=== PATIENT | female | born 2000 | race Two or more races ===

== ENCOUNTER 2024-06-28 22:20 | Emergency (ER) | payer MEDICAID, SELFPAY ==
[2024-06-28 22:20] VITALS: BMI 39.0
[2024-06-28 22:55] VITALS: BP 156/84; PULSE 103; RESP 20; TEMP 37.3; O2SAT 97
--- NOTE | 2024-06-28 23:01 | PD.EDCHEST ---
ED Chest Pain RME/HPI General Chief Complaint: Chest Pain Stated Complaint: CHEST PAIN Time Seen by Provider: 06/28/24 22:21 Arrival date/time: 06/28/24 22:20 This is a 23-year-old female that comes in with complaints of cough, congestion, runny nose and chest pain that started today. 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 Patient states that she is exposed to a lot of patients to have the flu. Patient states it hurts Related Data Previous Rx's ?Medication ?Instructions ?Recorded ibuprofen 800 mg tablet 800 mg PO TID #30 tabs 01/19/19 ibuprofen 800 mg tablet 800 mg PO Q6H PRN pain #14 tabs 06/29/24 promethazine-DM 6.25 mg-15 mg/5 mL 5 ml PO Q6H PRN cough #120 mL 06/29/24 oral syrup Allergies Allergy/AdvReac Type Severity Reaction Status Date / Time No Known Allergies Allergy Verified 05/09/20 19:21 Review of Systems Review of Systems Systems Reviewed: All systems reviewed, normal except as documented Past Medical History Social History SMOKING STATUS: Unknown if ever smoked SUBSTANCE USE: marijuana (daily) ALCOHOL: Never Travel History EBOLA RISK: No ED Exam Narrative Physical exam: VITAL SIGNS: Reviewed. GENERAL APPEARANCE: Alert and interactive, follows commands, no acute distress HEAD AND FACE: Non-traumatic. ENT: PERRL, pink conjunctivitis, eyelid no trauma, Mucous membrane moist. NECK: Supple, nontender, no nuchal rigidity. CHEST: No tenderness, no crepitus, no paradoxical movement, no retractions. LUNGS: Clear, well ventilated, symmetric, no rales, no wheezing, no ronchi, no stridor, good breath sounds bilaterally. HEART: Regular rate, regular rhythm, no murmur, no gallops. ABDOMEN: Soft, nondistended, no guarding, nontender, no rebound, no masses, NEUROLOGICAL: Gross motor function intact sensory function intact, Appropriate for age. MUSCULOSKELETAL: low back nontender, full range of motion. EXTREMITIES: No redness no swelling no skin breakdown on bilateral foot and leg. Distal neurovascular status intact bilateral foot SKIN: Color pink, dry, no rash, no lacerations, no abrasions, no contusions. Course Quality Measures none Orders Category Date Time Status Bedside COVID-19 Antigen Test NOW Care 06/28/24 23:00 Completed Bedside Influenza A&B Antigen Test NOW Care 06/28/24 23:01 Completed Strep A Rapid Stat Lab 06/28/24 23:03 Completed Acetaminophen Tab [Tylenol ES Tab] Med 06/28/24 23:00 Discontinued 1,000 mg PO X1 ONE Ibuprofen Tab [Motrin Tab] Med 06/28/24 23:00 Discontinued 800 mg PO X1 ONE Promethazine/Dextromethorph [Phenergan Dm Syrup] Med 06/28/24 23:00 Discontinued 5 ml PO X1 ONE Vital Signs Vital signs: Vital Signs Temperature 99.1 F 06/28/24 22:55 Pulse Rate 103 H 06/28/24 22:55 Respiratory Rate 20 06/28/24 22:55 Blood Pressure 156/84 H 06/28/24 22:55 Pulse Oximetry (%) 97 06/28/24 22:55 Oxygen Delivery Method Room Air 06/28/24 22:55 Chest Pain MDM Narrative MDM Narrative:: Patient's influenza and COVID were negative. Lungs sound clear. Patient states it hurts more to take deep breaths. Patient given Tylenol and ibuprofen for pain. Patient also given Promethazine DM for the cough. Patient feels better. Patient feels comfortable going home at this time. Patient told to follow-up with primary provider in 1 to 2 days. Come back to the emergency room if symptoms change or worsen. Patient data External records reviewed:: [facility] previous records Clinical information provided by:: patient Social determinants that could affect healthcare access:: none Patient has the following chronic illnesses:: None How is presenting disease/condition affected by chronic disease/condition?: no chronic disease Evaluation data The following diagnostics were reviewed and interpreted by me:: lab results Lab and/or radiology exams considered but not ordered:: None Interpretation Summary: See note Medications / Prescriptions Medications or Prescriptions considered but not ordered:: See MAR Medication administrations:: Medication Administration History Discontinued Medications Acetaminophen (Acetaminophen 500 Mg Tablet) 1,000 mg PO X1 ONE Stop: 06/28/24 23:01 Last Admin: 06/28/24 23:25 Dose: 1,000 mg Documented By: ISAURA Ibuprofen (Ibuprofen Tab 400 Mg Tablet) 800 mg PO X1 ONE Stop: 06/28/24 23:01 Last Admin: 06/28/24 23:25 Dose: 800 mg Documented By: ISAURA Promethazine HCl/Dextromethorphan (Promethazine/Dm Syrup 5 Ml Dose) 5 ml PO X1 ONE; Protocol Stop: 06/28/24 23:01 Last Admin: 06/28/24 23:26 Dose: 5 ml Documented By: ISAURA See MAR Consultations Consultation(s) initiated? (list below): No Diagnosis Most likely diagnosis given after review of the tests above:: Cough URI Admission Indicated Admission indicated?: not indicated Admission Request Was there a request for admission?: No Disposition Plan Disposition Plan: Discharge Discharge Attestation Discharge Attestation: The patient and all family members were given an opportunity to ask questions and understood the discharge instructions. Discharge instructions specifically effects, indications for sooner follow up or return to the emergency department, and the expected course of current diagnosis. Patient condition: Stable Discharge Plan Plan Patient Disposition: HOME (Self Care) Patient condition on transfer: Stable Prescriptions/Referrals Prescriptions/Med Rec: New promethazine-DM 6.25-15 mg/5 mL syrup 5 ml PO Q6H PRN (Reason: cough) Qty: 120 0RF ibuprofen 800 mg tablet 800 mg PO Q6H PRN (Reason: pain) Qty: 14 0RF No Action ibuprofen 800 mg tablet 800 mg PO TID Qty: 30 0RF Referrals: Rg Boothe MD [Primary Care Provider] - In 1 week Problem List Clinical Impression: Pleurisy, Upper respiratory infection, viral, Cough Patient/Caregiver Discharge Instructions Discharge Activity: activity as tolerated Education Materials: ED Pleurisy, ED URI, Viral, No Abx (Adult) Additional Instructions: Follow up with primary provider in 1-2 days. Come back to ED if symptoms change or worsen Print Language: [place] Citizen Stand Alone Forms: María Elena Award Info., Work/School Release, Patient Portal Info Letter ANTHONY/CHARO Supervising Physician ANTHONY/CHARO Supervising Physician: newton
[2024-06-28] MEDS: IBUPROFEN TAB 400 MG TABLET 800 MG PO (23:25)
[2024-06-28] MEDS: ACETAMINOPHEN 500 MG TABLET 1000 MG PO (23:25)
[2024-06-28] MEDS: PROMETHAZINE/DM SYRUP 5 ML DOSE PO (23:26)
[2024-06-29 00:39] LABS: Strep A Rapid Negative (Negative)
[2024-06-29 01:04] VITALS: RESP 16
== END 2024-06-29 01:05 | disposition home or self-care (01) ==
PROVIDERS: Nurse Practitioner Family; Emergency Provider Emergency Medicine; PCP Family Medicine
DX: J06.9 Acute upper respiratory infection, unspecified (principal); R09.1 Pleurisy
CPT/HCPCS: 87400; 87651; 87811; 99283; A9270

== ENCOUNTER 2024-09-18 13:01 | Emergency (ER) | payer SELFPAY ==
[2024-09-18 13:37] VITALS: BP 118/85; PULSE 77; RESP 18; TEMP 37; O2SAT 98; BMI 34.0
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
[2024-09-18] MEDS: IBUPROFEN TAB 400 MG TABLET 800 MG PO (19:20)
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
== END 2024-09-18 20:30 | disposition home or self-care (01) ==
PROVIDERS: Emergency Provider Family Medicine; PCP Family Medicine
DX: S13.4XXA Sprain of ligaments of cervical spine, initial encounter (principal); S89.92XA Unspecified injury of left lower leg, initial encounter; S09.90XA Unspecified injury of head, initial encounter; M25.572 Pain in left ankle and joints of left foot; S29.9XXA Unspecified injury of thorax, initial encounter; V49.9XXA Car occupant (driver) (passenger) injured in unspecified traffic accident, initial encounter
CPT/HCPCS: 70450; 71046; 72125; 73590; 73610; 99284; A9270